=== PATIENT | male | born 1980 | race Caucasian/White ===

== ENCOUNTER 2019-06-29 09:48 | Emergency (ER) | payer OTHER, SELFPAY ==
--- NOTE | 2019-06-29 09:58 | ED_ITS ---
HPI - Wound/Laceration General Chief Complaint: Wound/Laceration Stated Complaint: Cut top of finger off Time Seen by Provider: 06/29/19 09:58 Source: patient Mode of arrival: ambulatory Limitations: no limitations History of Present Illness HPI narrative: Patient is a 39-year-old male who presents with left index finger laceration. He said he was at work when he cut off the tip of his left finger with a clean kitchen knife. His tetanus is not up-to-date because he is allergic to it. He does have pain at that site but no other numbness or tingling. He is not on any antiplatelet or anticoagulation medication. Onset (ago): minute(s) Related Data Allergies Allergy/AdvReac Type Severity Reaction Status Date / Time Sulfa (Sulfonamide Allergy Unknown Verified 06/29/19 10:05 Antibiotics) tetanus and diphtheria AdvReac Severe Muscle Pain Verified 06/29/19 10:08 toxoids Review of Systems Review of Systems GENERAL: Denies chills,fever HEENT: Denies throat pain RESPIRATORY: Denies dyspnea, cough, wheezing CARDIOVASCULAR: Denies chest pain, palpitations GASTROINTESTINAL: Denies nausea, vomiting MUSCULOSKELETAL: Denies extremity pain, injury SKIN: See HPI NEUROLOGIC: Denies weakness, dizziness, headache, numbness 8 point review of systems is negative except for those stated above and HPI [facility] Medical History [id number] (DPT) vaccination not up to date (Acute) Social History Smoking Status: Former smoker Social History Smoking Status: Former smoker Exam Initial Vital Signs Initial Vital Signs: Vital Signs Temperature 98.5 F 06/29/19 10:00 Pulse Rate 88 06/29/19 10:00 Respiratory Rate 18 06/29/19 10:00 Blood Pressure 130/106 H 06/29/19 10:00 Pulse Oximetry 97 06/29/19 10:00 GENERAL: Well-appearing, well-nourished and in no acute distress. CARDIOVASCULAR: peripheral pulses in tact, cap refill <2 sec RESPIRATORY: No respiratory distress, speaks in full sentences without difficulty EXTREMITIES: Normal range of motion, no clubbing or edema. Neurovascularly intact NEUROLOGICAL: Cranial nerves II through XII grossly intact. Normal gait and speech. SKIN: Left index finger tip lateral side is cut off completely. A actively bleeding. Approximately 0.5 cm in length. Course Vital Signs - 8 hr 06/29/19 10:00 Temperature 98.5 F Pulse Rate 88 Respiratory Rate 18 Blood Pressure 130/106 H Pulse Oximetry 97 MDM - Wound/Laceration MDM Narrative Medical decision making narrative: Surgicel placed in pressure dressing placed. Overall bleeding controlled. Discharge Plan Departure Patient Disposition: Home Clinical Impression: Laceration of left index finger Qualifiers: Encounter type: initial encounter Damage to nail status: with damage Foreign body presence: without foreign body Qualified Code(s): S61.311A - Laceration without foreign body of left index finger with damage to nail, initial encounter Discharge Date/Time: 06/29/19 10:20 Interventions: ED Discharge Assessment Last Done: 06/29/19 10:57 Instructions: DI for Avulsion Laceration (Not Requiring Sutures) Activity Restrictions/Additional Instructions: *You have been diagnosed with avulsion laceration of left index finger *What to do: Apply pressure and keep dressing on for 24 hours. Tomorrow morning may remove the dressing. If bleeding should continue hold above heart and apply pressure. *Continue to take medications as directed Tylenol or ibuprofen as directed if needed for pain *Follow up with your primary care provider in 2-3 days *Return to ER if you should have persistent bleeding ongoing for more than 1 weakness or any new, worsening or concerning symptoms Stand Alone Forms: Work Release Note
[2019-06-29 10:00] VITALS: BP 130/106; PULSE 88; RESP 18; TEMP 36.9; O2SAT 97; BMI 34.4
--- NOTE | 2019-06-29 10:56 | PC.NURSE ---
cleansed the wound applied gel foam and coban pressure dressing
== END 2019-06-29 10:20 | disposition home or self-care (01) ==
PROVIDERS: Emergency Provider Emergency Medicine
DX: S61.311A Laceration without foreign body of left index finger with damage to nail, initial encounter (principal); W26.0XXA Contact with knife, initial encounter; Y99.0 Civilian activity done for income or pay
CPT/HCPCS: 99282; 99283